=== PATIENT | male | born 1970 | race Caucasian/White ===

== ENCOUNTER → 2021-04-13 16:07 | Outpatient (BNVA) | payer BC, SELFPAY | PROVIDERS: Visit Provider Internal Medicine | DX: I10 Essential (primary) hypertension (principal); E66.9 Obesity, unspecified; Z12.11 Encounter for screening for malignant neoplasm of colon; R30.0 Dysuria; Z01.812 Encounter for preprocedural laboratory examination | CPT/HCPCS: 80053; 80061; 83036; 84443 ==

== ENCOUNTER → 2021-04-25 16:17 | Outpatient (BNVA) | payer BC, SELFPAY | PROVIDERS: Visit Provider Internal Medicine | DX: Z01.812 Encounter for preprocedural laboratory examination (principal); Z20.822 Contact with and (suspected) exposure to COVID-19 | CPT/HCPCS: 87635 ==

== ENCOUNTER 2021-04-29 07:42 | Day surgery (SDC) | payer BC, SELFPAY ==
[2021-04-26 12:55] VITALS: BMI 45.7
[2021-04-29 07:57] VITALS: BP 161/93; PULSE 60; RESP 18; TEMP 36.6; O2SAT 95
[2021-04-29] MEDS: sodium chloride 0.9% 1,000 ML 30 ML IV (08:02)
--- NOTE | 2021-04-29 08:27 | ANES.PREANE2 ---
Pre-Anesthetic Assessment Pre-Anesthetic Assessment: Height/Weight: Height 1.8 m Weight 148.778 kg Temp Pulse Resp BP Pulse Ox 97.8 F 60 18 161/93 95 04/29/21 07:57 04/29/21 07:57 04/29/21 07:57 04/29/21 07:57 04/29/21 07:57 Preop Diagnosis: screening Proposed Procedure: Operation Date: 04/29/21 09:00 Proposed Procedures p Colonoscopy G0121 E66.1(Not Applicable) - Babak Campoverde MD Was Beta Bang taken within 24 hours: N/A Was Clonidine taken within 24 hours: N/A Last intake: Intake Last Liquid Date 04/28/21 Last Liquid Time 23:00 Last Solid Date 04/27/21 Social: Social History: No alcohol and No tobacco Exam: Pre-Anes Outpt Exam: alert, oriented x 3, clear to auscultation bilaterally and regular rate & rhythm Airway: Submandibular: WNL Cervical ROM: WNL MP: 2 Dentition: Full CV/HEM: CV/HEM: HTN Metabolic: Metabolic: Morbid obesity Anesthetic Plan: ASA status: 3 Anesthesia: MAC Risk of > 500 ml blood loss (7ml/kg in children): No Meds/Allergies Current Medications: Current Medications Generic Name Dose Route Start Last Admin Trade Name Freq PRN Reason Stop Dose Admin Sodium Chloride 1,000 mls @ 30 ml s/hr 04/29/21 08:00 04/29/21 08:02 Sodium Chloride 0.9% IV 30 mls/hr .Q24H KAYODE Administration PFSH Anesthesia PFSH: Family History (Updated 04/13/21 @ 14:47 by DEDE Menon) Grandmother Diabetes Other Cancer Social History (Updated 04/13/21 @ 14:[address]) Smoking and tobacco status: never smoked Alcohol intake: current Alcohol intake frequency: holidays/special occasions only Adopted: No Marital status: Number of children: 2 service: No History of recent travel: Yes Out of country: Yes Data Anesthesia Cardiac Studies: No Data to Display
--- NOTE | 2021-04-29 09:15 | W.PM.OPSFHP ---
Same Day Surgery H&P Indication for Procedure/HPI DATE OF PROCEDURE: April 29, 2021 CHIEF COMPLAINT/INDICATIONFOR SURGICAL PROCEDURE: Screening PREOP DIAGNOSIS: screening PLANNED PROCEDRUE: Operation Date: 04/29/21 09:00 Proposed Procedures p Colonoscopy G0121 E66.1(Not Applicable) - Babak Campoverde MD Medications/Allergies* Home Medications Medication Instructions Recorded Confirmed Type No Known Home Medications 04/13/21 04/26/21 History Allergies/Adverse Reactions Allergy/AdvReac Type Severity Reaction Status Date / Time No Known Allergies Allergy Verified 04/29/21 08:00 Current Medications: Generic Name Dose Route Start Last Admin Trade Name Freq PRN Reason Stop Dose Admin Sodium Chloride 1,000 mls @ 30 mls/hr 04/29/21 08:00 04/29/21 08:02 Sodium Chloride 0.9% IV 30 mls/hr .Q24H KAYODE Administration Pertinent History/Comorbid Conditions* Family History (Updated 04/13/21 @ 14:47 by DEDE Menon) Diabetes Grandmother Cancer Social History Smoking and tobacco status: never smoked Alcohol intake: current Alcohol intake frequency: holidays/special occasions only Adopted: No Marital status: Number of children: 2 service: No History of recent travel: Yes Out of country: Yes Pertinent Exam Findings alert, oriented x 3, clear to auscultation bilaterally, regular rate & rhythm, operative site marked and procedure specific exam findings Recommendations Surgery/Procedure today Coding Level of Care Code Acute Senior Designer/Art Director for Ariana Schroeder
[2021-04-29 09:31] VITALS: BP 110/67; PULSE 68; RESP 18; TEMP 36.2; O2SAT 92
[2021-04-29 09:43] VITALS: BP 145/94; PULSE 59; RESP 18; O2SAT 96
--- NOTE | 2021-04-29 10:35 | ANE.PACU2 ---
Inpatient post-anesthesia follow up: Airway intact: Yes Vital signs: Temperature 97.1 F Pulse Rate 59 Respiratory Rate 18 Blood Pressure 145/94 Pulse Oximetry 96 Oxygen Delivery Me thod Room Air Oxygen Flow Rate Fraction of Inspir ed Oxygen Hydration adequate: Yes Mental status: Baseline
== END 2021-04-29 09:50 | disposition home or self-care (01) ==
PROVIDERS: PCP Internal Medicine; Visit Provider Internal Medicine
PROC: 0DJD8ZZ Inspection of Lower Intestinal Tract, Via Natural or Artificial Opening Endoscopic (ICD-10-PCS; CPT 45378; principal; 2021-04-29 09:00)
DX: Z12.11 Encounter for screening for malignant neoplasm of colon (principal); I10 Essential (primary) hypertension; E66.01 Morbid (severe) obesity due to excess calories; Z68.42 Body mass index [BMI] 45.0-49.9, adult
CPT/HCPCS: 45378; 96360; 96361; J2704; J7030

== ENCOUNTER → 2023-06-29 10:22 | Outpatient (BNVA) | payer BC, SELFPAY | PROVIDERS: PCP Internal Medicine; Visit Provider Family Medicine Adult Medicine | DX: M54.50 Low back pain, unspecified (principal); R39.15 Urgency of urination; E78.5 Hyperlipidemia, unspecified; R73.03 Prediabetes; I10 Essential (primary) hypertension; E66.9 Obesity, unspecified | CPT/HCPCS: 80053; 80061; 81000; 83036; 85025; G0103 ==